=== PATIENT | female | born 1940 | race Caucasian/White ===

== ENCOUNTER 2021-07-27 08:29 | Outpatient (CLI) | payer MEDICARE, OTHER, SELFPAY ==
[2021-07-27 10:06] LABS: Alanine Aminotransferase 17 U/L (4-35); Albumin Level 4.5 g/dL (3.5-5.1); Alkaline Phosphatase 71 U/L (38-126); Anion Gap 7 mmol/L (8-16); Aspartate Amino Transferase 26 U/L (14-36); Bilirubin,Total 0.5 mg/dL (0.2-1.3); Blood Urea Nitrogen 15 mg/dL (7-17); Calcium 9.5 mg/dL (8.4-10.2); Carbon Dioxide 31 mmol/L (22-30); Chloride 105 mmol/L (98-107); Cholesterol 188 mg/dL (0-200); Estimated Glomerular Filt Rate 60; Glucose 97 mg/dL (65-110); HDL Direct 97 mg/dL; Sodium 143 mmol/L (137-145); Triglycerides 109 mg/dL (<150)
[2021-07-27 10:17] LABS: LDL Cholesterol Direct 61 mg/dL
[2021-07-27 10:50] LABS: Free T4 Free Thyroxine 0.93 ng/mL (0.78-2.19)
== END 2021-07-27 08:30 | disposition home or self-care (01) ==
LOC: ANHLAB 08:32
PROVIDERS: PCP Family Medicine; Visit Provider Family Medicine
DX: I10 Essential (primary) hypertension (principal); E03.9 Hypothyroidism, unspecified; E78.2 Mixed hyperlipidemia
CPT/HCPCS: 36415; 80053; 80061; 84439; 84443; 84480

== ENCOUNTER 2021-08-30 09:30 | Outpatient (CLI) | payer MEDICARE, OTHER, SELFPAY ==
--- NOTE | ~2021-08-30 | CT_ITS ---
EXAMINATION: CT brain & sinus wo con DATE: 08/30/2021 09:49 INDICATION: Dizziness and giddiness. TECHNIQUE: Computed tomography (CT) of the head was performed without intravenous contrast. The dose- length product was 756.67 mGy-cm. Automated exposure control and iterative reconstruction technique w ere employed. COMPARISON: None FINDINGS: There are scattered mild periventricular and subcortical white matter changes, most likely related to small vessel ischemic disease (microangiopathy). No acute intracranial hemorrhage, infarct ion, mass or mass effect. Basilar cisterns are patent. Paranasal sinuses and mastoids are pneumatized . No depressed skull fractures. Midline sagittal images are unremarkable. IMPRESSION: 1. No acute intracranial abnormality. 2: Chronic age-related findings. Reviewed, dictated and finalized at location A. RETE ANALYST
== END 2021-08-30 09:31 | disposition home or self-care (01) ==
LOC: ANHIMG 09:31
PROVIDERS: PCP Family Medicine; Visit Provider Family Medicine
DX: R42 Dizziness and giddiness (principal); R51.9 Headache, unspecified
CPT/HCPCS: 70450; 70486

== ENCOUNTER 2021-10-02 07:57 | Outpatient (CLI) | payer MEDICARE, OTHER, SELFPAY ==
--- NOTE | ~2021-10-02 | MM_ITS ---
EXAMINATION: MM screening ashley BI w jillian HISTORY: Screening mammogram TECHNIQUE: Craniocaudal and mediolateral oblique 3-D tomosynthesis images were obtained and synthetic 2-D images were generated. CAD analysis was submitted and interpreted. COMPARISON: No prior mammogram is available for comparison at this institution. BREAST PARENCHYMAL COMPOSITION: There are scattered areas of fibroglandular density. FINDINGS: There is no evidence of suspicious mass, calcification, or architectural distortion to sugg est malignancy in either breast. IMPRESSION: 1. No mammographic evidence of malignancy. 2. Recommend routine screening mammography in one year. BI-RADS Category 1: Negative Reviewed, dictated and finalized at location A. MARKER
--- NOTE | ~2021-10-02 | DEXA_ITS ---
Bone Density Report Name: GUERLINE ORTIZ Age: 80 Sex: Female Ethnicity: White Date of : 1940 Indication: postmenopausal; height loss; cancer; Referring Provider: CHRISTIE KUMAR Study: Bone densitometry was performed. Exam Date: October 02, 2021 Accession number: [id number] Bone Density: Region BMD T-score Z-score Classification AP Spine (L1, L2, L3) 0.857 -1.5 1.1 Osteopenia Femoral Neck (Left) 0.468 -3.4 -1.1 Osteoporosis Total Hip (Left) 0.588 -2.9 -0.9 Osteoporosis Total Hip Bilateral Avg 0.586 -2.9 -0.9 Osteoporosis Femoral Neck (Right) 0.503 -3.1 -0.8 Osteoporosis Total Hip (Right) 0.583 -2.9 -0.9 Osteoporosis World Health Organization criteria for BMD impression classify patients as: Normal (T-score at or above -1.0), Osteopenia (T-score between -1.0 and -2.5), or Osteoporosis (T-score at or below -2.5). 10-year Fracture Risk: FRAX not reported because: Some T-score for Spine Total or Hip Total or Femoral Neck at or below -2.5 Clinical Information Provided by Patient: Has used the following medications: Vitamin D Has the following medical conditions: Cancer Patient maximum height was 63 Menopause Age: 33 Drinks caffeinated beverages Onset of menses at age 14 Number of children 4 Impression: The patient has osteoporosis, based on the Left Femoral Neck T-score. Discussion: INCREASED RISK OF FRACTURE. BONE DENSITY IS UNDESIRABLY LOW AT ONE OR MORE SKELETAL SITES, CONSISTENT WITH POSTMENOPAUSAL OSTEOPOROSIS. This patient's lowest T-score meets the World Health Organization's (WHO) criteria for osteoporosis at one or more sites (T-score -2.5 or below). In untreated patients, the risk of osteoporotic fracture increases approximately two-fold for each 1.0 SD decrease in T-score. Low bone density is not the only risk factor for fracture; also consider factors such as patient's age, frailty or poor health, risk of falling, risk of injury, previous osteoporotic fracture, family history of osteoporosis, cigarette smoking, low body weight, etc. Not everyone with low bone mineral density has osteoporosis; osteomalacia and other metabolic bone disorders should also be considered. Patients who have osteoporosis should be evaluated for specific diseases and conditions (secondary causes) that may cause or contribute to bone loss. The [place] [employer] Endocrinologists (AACE) and National Osteoporosis Foundation (NOF) recommend pharmacologic intervention for all postmenopausal women whose T-score is in this range. The patient should follow a healthful lifestyle (good nutrition with adequate calcium and vitamin D, and appropriate weight-bearing exercise). Follow-Up: Consider a repeat BMD and Vertebral Fracture Assessment (VFA) exam in 2 years or sooner if medically necessary, to reassess this rinku
== END 2021-10-02 07:58 | disposition home or self-care (01) ==
PROVIDERS: PCP Family Medicine; Visit Provider Family Medicine
DX: Z12.31 Encounter for screening mammogram for malignant neoplasm of breast (principal); Z78.0 Asymptomatic menopausal state; M81.0 Age-related osteoporosis without current pathological fracture
CPT/HCPCS: 77063; 77067; 77080

== ENCOUNTER 2021-11-22 22:46 | Emergency (ER) | payer MEDICARE, OTHER, SELFPAY ==
[2021-11-22 22:53] VITALS: BP 173/85; PULSE 99; RESP 18; TEMP 36.2; O2SAT 100
--- NOTE | 2021-11-22 23:31 | ED.URI ---
HPI - URI/Sore Throat General Chief Complaint: Upper Respiratory Infection Stated Complaint: sore throat, white patches X 1 month Time Seen by Provider: 11/22/21 23:03 Source: patient Mode of arrival: ambulatory Limitations: no limitations History of Present Illness HPI Narrative: Patient is a 80-year-old female complaining of white spots in the back of her throat that started 2 days ago. Patient states that she is been having sore throat for the past month but only the past 2 days she has noticed white spots. Patient states that she is currently on steroids, has been on it for the past week, prescribed by her PCP but does not know what it was for. Denies any dysphagia, neck swelling, shortness of breath, fever or chills. Related Data Home Medications Medication Instructions Recorded Confirmed cholecalciferol (vitamin D3) 50 50 mcg PO DAILY 07/24/21 11/13/21 mcg (2,000 unit) capsule levothyroxine 75 mcg tablet 75 mcg PO DAILY 07/24/21 11/13/21 Allergies Allergy/AdvReac Type Severity Reaction Status Date / Time Penicillins Allergy Unknown Verified 11/22/21 22:49 Review of Systems Review of Systems: Per HPI All systems reviewed & are unremarkable except as noted in HPI and below PMFSH Past Medical History Medical History Atrial fibrillation with controlled ventricular response Benign essential HTN Cervical cancer Constipation Current use of intermodal dispatcher anticoagulation History of external beam radiation therapy Lower abdominal pain 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 Rectal stenosis Vaginal stenosis Surgical History Surgical History Colostomy status Hx of cataract extraction Social History Social History Social History: Widows Smoking status: Never smoker Second hand tobacco smoke exposure: No Alcohol intake: never Substance use: never Substance use type: does not use Gender identity (if verbalized by the patient): Female Sexual Orientation (if Verbalized by the Patient): Straight or Heterosexual Exam Const: General: cooperative, healthy appearing, comfortable, no acute distress, well developed, alert and awake; No confusion Orientation/consciousness: oriented to person, oriented to place, oriented to time, patient oriented x3 and No confusion Limitations: no limitations HENMT: Head: normal to inspection, normocephalic and atraumatic Ears: hearing grossly normal bilaterally, TM normal on the right and TM normal on the left General nose exam: Normal external nose present, Normal nares present and No nasal discharge present Face and sinus: normal facial exam Mouth: Yes Normal oral and palatal mucosa present, Yes lip normal, Yes tongue normal and Yes oropharynx normal Throat: uvula midline Other: Negative for neck swelling or edema. White patches oropharyngeal area, negative for edema or swelling, negative for lymphadenopathy Eyes: General: appearance normal, both eyes and all related structures Pupils: Equal, round and reactive pupils present EOM: EOMs intact bilaterally Neck: Neck: normal visual inspection, full ROM, no lymphadenopathy and no meningeal signs Chest: Chest palpation & inspection: normal inspection of the chest Resp: Effort & Inspection: normal respiratory effort, able to speak in complete sentences, no respiratory distress and not tachypneic Auscultation: clear to auscultation bilaterally, no crackles, no rales, no rhonchi and no wheezes Cardio: Rate: regular rate Rhythm: regular rhythm GI: Inspection: normal to inspection GI Palp: No abdominal tenderness, Yes Soft to palpation, No Tenderness to palpation present (GI), No Guarding due to palpation present (GI), No Rigid due to palpation and No Rebound tenderness present Auscultat
== END 2021-11-23 00:13 | disposition home or self-care (01) ==
PROVIDERS: Emergency Provider Emergency Medicine; PCP Family Medicine
DX: B37.0 Candidal stomatitis (principal); I48.91 Unspecified atrial fibrillation; I10 Essential (primary) hypertension; Z85.41 Personal history of malignant neoplasm of cervix uteri; Z92.3 Personal history of irradiation; Z79.01 Long term (current) use of anticoagulants; Z98.49 Cataract extraction status, unspecified eye; Z93.3 Colostomy status
CPT/HCPCS: 87081; 87880; 99283

== ENCOUNTER 2021-12-09 07:56 | Emergency (ER) | payer MEDICARE, OTHER, SELFPAY ==
--- NOTE | ~2021-12-09 | CT_ITS ---
EXAMINATION: CT abdomen pelvis w con DATE: 12/09/2021 09:29 INDICATION: Right lower abdominal pain. Dysuria. TECHNIQUE: Computed tomography (CT) of the abdomen and pelvis was performed with 100 cc Omnipaque 350 intravenous contrast. The dose-length product was 227.10 mGy-cm. Automated exposure control and iter ative reconstruction technique were employed. COMPARISON: None. FINDINGS: There is right middle lobe atelectasis. Borderline heart size. No significant pleural or pe ricardial effusion. There are calcified granulomas of the liver and spleen. There are small subcentim eter hypodensities of the liver, most likely benign cysts. Gallbladder is present. Status post partia l left colectomy with colostomy in the left lower abdomen. Nonobstructive bowel gas pattern. Bladder wall is mildly prominent with enhancement, suspicious for cystitis. There is atherosclerosis of the a joni without aneurysm. There is right renal artery stenosis. There is mild left hydronephrosis. No de finite obstructing stone identified. There is sclerosis bilaterally in the sacrum, possibly bone bri nds. Generalized osteopenia. There is osteoarthritis of the hips. There is moderate lumbar spondylosi s. IMPRESSION: 1. Mild thickening of the bladder wall with enhancement, suspicious for cystitis. Correlate clinicall y. 2: Mild left hydronephrosis. No definite obstructing stone or mass identified. Reviewed, dictated and finalized at location A. NE ELECTRICIAN HELPER IMPRESSION: 1. Mild thickening of the bladder wall with enhancement, suspicious for cystiti s. Correlate clinically. 2: Mild left hydronephrosis. No definite obstructing stone or mass identified.
[2021-12-09 07:58] VITALS: BP 161/80; PULSE 97; RESP 18; TEMP 36.6; O2SAT 99
[2021-12-09 08:24] LABS: Add Urine Microscopic? YES; Appearance Urine Clear (Clear); Bacteria Urine Trace /hpf; Bilirubin Urine Negative (Negative); Blood Urine 3+ (Negative); Color Urine Straw (Yellow); Glucose Urine UA Negative (Negative); Ketones Urine Negative (Negative); Leukocyte Esterase Ur 3+ LEU/UL (Negative); Mucus Urine Rare /lpf; Nitrate Urine Negative (Negative); Protein Urine Negative (Negative); RBC Urine 0-2 /hpf (0-2); Squamous Epithelial Cell Urine Rare /hpf (Few); Urobilinogen Urine Negative mg/dL (<2.0); WBC Urine >75 /hpf
[2021-12-09 08:25] LABS: Specific Grav Ur 1.001 (1.001-1.035)
[2021-12-09 08:38] LABS: Basophils Percent Auto 0.4 % (0.2-1.2); Eosinophils Absolute Auto 0.1 K/mm3 (0-0.3); Hematocrit 36.5 % (37.0-47.0); Hemoglobin 11.8 g/dL (12.0-15.0); Immature Granulocyte Absolute 0.05 K/mm3 (0.00-0.031); Immature Granulocyte Percent A 0.5 % (0-0.5); Lymphocytes Absolute Auto 1.23 K/mm3 (0.9-3.2); Lymphocytes Percent Auto 13.1 % (18.3-44.2); Mean Corpuscular HGB Conc 32.3 g/dl (32-36); Mean Corpuscular Hemoglobin 32.5 pg (26-34); Mean Corpuscular Volume 100.6 fl (80-100); Monocytes Absolute Auto 0.6 K/mm3 (0.1-0.6); Monocytes Percent Auto 6.7 % (2.6-8.5); Neutrophils Absolute Auto 7.3 K/mm3 (1.3-6.7); Neutrophils Percent Auto 78.3 % (45.5-73.1); Platelet Count Result 245 k/mm3 (150-375); Red Blood Count 3.63 M/mm3 (4.2-5.4); Red Cell Distribution Width 13.3 % (11.5-14.5); White Blood Count 9.4 K/mm3 (4.5-10.0)
[2021-12-09 08:51] LABS: Alanine Aminotransferase 26 U/L (4-35); Alkaline Phosphatase 105 U/L (38-126); Anion Gap 2 mmol/L (8-16); Aspartate Amino Transferase 28 U/L (14-36); Bilirubin,Total 0.4 mg/dL (0.2-1.3); Blood Urea Nitrogen 13 mg/dL (7-17); Calcium 9.6 mg/dL (8.4-10.2); Carbon Dioxide 30 mmol/L (22-30); Chloride 106 mmol/L (98-107); Estimated CRCL calculation 43 ml/min; Estimated Glomerular Filt Rate > 60; Glucose 94 mg/dL (65-110); Lipase 102 U/L (23-300); Potassium 3.7 mmol/L (3.4-5.0); Sodium 138 mmol/L (137-145)
--- NOTE | 2021-12-09 09:13 | ED.FEMALEGU ---
HPI - Female Genitourinary General Chief complaint: Urogenital-Female Stated complaint: UTI Time Seen by Provider: 12/09/21 07:59 Source: patient and RN notes reviewed Mode of arrival: ambulatory Limitations: no limitations History of Present Illness HPI Narrative: This is a 80 year old female who presents for lower abdominal pain and possible UTI. Patient developed lower abdominal pain this morning. She also reports associated increased urgency, frequency and dysuria. She also states she is urinating a small amount at a time. She denies hematuria, nausea, vomiting, back pain or fever. She denies history of frequent UTIs. Related Data Home Medications Medication Instructions Recorded Confirmed cholecalciferol (vitamin D3) 50 50 mcg PO DAILY 07/24/21 12/03/21 mcg (2,000 unit) capsule levothyroxine 75 mcg tablet 75 mcg PO DAILY 07/24/21 12/03/21 Allergies Allergy/AdvReac Type Severity Reaction Status Date / Time Penicillins Allergy Unknown Verified 11/27/21 13:11 Review of Systems Review of Systems: All systems reviewed & are unremarkable except as noted in HPI and below PMFSH Past Medical History Medical History Atrial fibrillation with controlled ventricular response Benign essential HTN Cervical cancer Constipation Current use of custodial anticoagulation History of external beam radiation therapy Lower abdominal pain 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 Gender identity (if verbalized by the patient): Female Sexual Orientation (if Verbalized by the Patient): Straight or Heterosexual Exam Const: General: no acute distress and alert Orientation/consciousness: patient oriented x3 Eyes: EOM: EOMs intact bilaterally Resp: Effort & Inspection: normal respiratory effort and no retractions Auscultation: clear to auscultation bilaterally Cardio: Rate: regular rate Rhythm: regular rhythm Heart sounds: no murmurs GI: GI Palp: Yes Soft to palpation, Yes Tenderness to palpation present (GI) (RLQ), No Guarding due to palpation present (GI) and No Rigid due to palpation Auscultation: normal bowel sounds Other: LLQ colostomy : General: Yes no CVA tenderness Skin: General skin exam: normal color Rashes: no rashes Neuro: General: patient oriented x3, moves all extremities and CN's II-XI intact bilaterally Psych: Mental Status: mental status grossly normal Affect: normal affect Course Reevaluation(s) Reevaluation #1: Patient had CT performed due to having right lower abdominal tenderness with left shift. Ct shows cystitis. I discussed discharge plan with patient and she will be given antibiotics. She reports taking amoxicillin recently without any issues. She does not remember reaction to penicillin. Date: 12/09/21 Time: 10:07 Vital Signs Vital signs: Vital Signs Temperature 97.8 F 12/09/21 07:58 Pulse Rate 97 12/09/21 07:58 Respiratory Rate 18 12/09/21 07:58 Blood Pressure 161/80 H 12/09/21 07:58 Pulse Oximetry 99 12/09/21 07:58 Temperature 97.8 F 12/09/21 07:58 Pulse Rate 87 12/09/21 10:27 Respiratory Rate 16 12/09/21 10:27 Blood Pressure 156/75 H 12/09/21 10:27 Pulse Oximetry 97 12/09/21 10:27 MDM - Female Genitourinary Lab Data Attestation: I reviewed the patient's lab results. Result diagrams: 12/09/21 08:
[2021-12-09 10:27] VITALS: BP 156/75; PULSE 87; RESP 16; O2SAT 97
== END 2021-12-09 10:40 | disposition home or self-care (01) ==
PROVIDERS: Emergency Provider General Practice; PCP Family Medicine
DX: I48.91 Unspecified atrial fibrillation (principal); N13.30 Unspecified hydronephrosis; I10 Essential (primary) hypertension; I69.911 Memory deficit following unspecified cerebrovascular disease; Z85.41 Personal history of malignant neoplasm of cervix uteri; Z79.01 Long term (current) use of anticoagulants; Z98.49 Cataract extraction status, unspecified eye; Z93.3 Colostomy status; N30.90 Cystitis, unspecified without hematuria
CPT/HCPCS: 36415; 74177; 80053; 81001; 83690; 85025; 87077; 87086; 87186; 96365; 99284; J0696; Q9967

== ENCOUNTER 2021-12-26 09:24 | Outpatient (CLI) | payer MEDICARE, OTHER, SELFPAY ==
[2021-12-26 09:49] LABS: Basophils Percent Auto 0.2 % (0.2-1.2); Eosinophils Percent Auto 0.4 % (0-4.4); Hemoglobin 12.4 g/dL (12.0-15.0); Lymphocytes Absolute Auto 1.43 K/mm3 (0.9-3.2); Lymphocytes Percent Auto 14.1 % (18.3-44.2); Mean Corpuscular HGB Conc 32.6 g/dl (32-36); Mean Corpuscular Hemoglobin 32.6 pg (26-34); Mean Platelet Volume 9.2 fl (7.4-10.4); Monocytes Percent Auto 9.9 % (2.6-8.5); Neutrophils Absolute Auto 7.6 K/mm3 (1.3-6.7); Neutrophils Percent Auto 74.4 % (45.5-73.1); Platelet Count Result 281 k/mm3 (150-375); Red Cell Distribution Width 13.7 % (11.5-14.5); White Blood Count 10.1 K/mm3 (4.5-10.0)
[2021-12-26 10:23] LABS: Alanine Aminotransferase 20 U/L (4-35); Albumin Level 3.7 g/dL (3.5-5.1); Alkaline Phosphatase 82 U/L (38-126); Anion Gap 2 mmol/L (8-16); Aspartate Amino Transferase 24 U/L (14-36); Bilirubin,Total 0.5 mg/dL (0.2-1.3); Blood Urea Nitrogen 17 mg/dL (7-17); Calcium 9.1 mg/dL (8.4-10.2); Carbon Dioxide 31 mmol/L (22-30); Chloride 105 mmol/L (98-107); Estimated Glomerular Filt Rate > 60; Glucose 112 mg/dL (65-110); Sodium 138 mmol/L (137-145)
== END 2021-12-26 09:25 | disposition home or self-care (01) ==
LOC: ANHLAB 09:30
PROVIDERS: PCP Family Medicine; Visit Provider Nurse Practitioner Gerontology
DX: E87.6 Hypokalemia (principal); N89.5 Stricture and atresia of vagina; I10 Essential (primary) hypertension
CPT/HCPCS: 36415; 80053; 85025

== ENCOUNTER 2022-01-28 19:15 | Emergency (ER) | payer MEDICARE, OTHER, SELFPAY ==
[2022-01-28 19:22] VITALS: BP 153/75; PULSE 82; RESP 18; TEMP 36.2; O2SAT 100
--- NOTE | 2022-01-28 21:23 | ED.GENADULT ---
HPI - General Adult General Chief complaint: Unspecified Stated complaint: sore throat Time Seen by Provider: 01/28/22 21:17 Source: patient Mode of arrival: ambulatory Limitations: no limitations History of Present Illness HPI narrative: Patient is 81 years old white female had a diagnosis of oral candidiasis November 21, 2021 by her family physician. Patient been on different courses of nystatin oral suspension, fluconazole tablets intermittently since the beginning of the diagnosis and to now. Currently patient on nystatin oral suspension without any improvement, scheduled to see an ENT after tomorrow. Patient came to the ED today because he needs some pain medication but is down her sore throat and oral pain. Patient is not immunocompromised, denied any history of HIV or AIDS, denied history of any autoimmune disease. is not on immune suppressant medication Related Data Home Medications Medication Instructions Recorded Confirmed cholecalciferol (vitamin D3) 50 50 mcg PO DAILY 07/24/21 01/25/22 mcg (2,000 unit) capsule Allergies Allergy/AdvReac Type Severity Reaction Status Date / Time cefuroxime Allergy Severe Rash Verified 01/28/22 21:22 Penicillins Allergy Unknown Verified 01/28/22 21:22 Review of Systems Review of Systems: CONSTITUTIONAL: Denies fever, chills, or sweats. EYES: Denies visual changes, redness, or discharge. ENT: Denies rhinorrhea, congestion, sore throat, or otalgia. CARDIOVASCULAR: Denies chest pain, palpitations, or edema. RESPIRATORY: Denies cough or dyspnea. GASTROINTESTINAL: Denies abdominal pain, nausea, vomiting, or diarrhea. GENITOURINARY: Denies dysuria or hematuria. SKIN: Denies rash or itching. MUSCULOSKELETAL: Denies back pain, joint pain, or myalgia. NEUROLOGIC: Denies headache, numbness, or weakness. PSYCHIATRIC: Denies anxiety or depression. 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 Gender identity (if verbalized by the patient): Female Sexual Orientation (if Verbalized by the Patient): Straight or Heterosexual Exam Narrative: General appearance: Well-developed, well-nourished Skin: Normal color Head: Normocephalic, nontraumatic Eyes: Clear conjunctiva ENT: Oral mucosa, tongue, hard and soft palates showing white pseudomembrane is plaques, scraping causes erythematous, inflamed and the bleeding base. Chest and respiratory: Airway patent, no respiratory distress, no accessory muscle use Heart: Regular rate/rhythm Vascular: Normal peripheral pulses, normal capillary refill. Musculoskeletal: Normal range of motion, nontender back Neurologic: Alert and oriented ?3, DRAW FURNACE TENDER is normal as tested, no gross motor deficit Course Course Emergency Course: Oral candidiasis is my concern. Patient denies any steroid use, autoimmune dise
--- NOTE | 2022-01-28 22:12 | PC.NURSE ---
patient states that she has had a sore mouth since nov. she has seen here PCP and has been given the same medications x4 with no relief. has an appt with ENT this week
[2022-01-28] MEDS: LIDOCAINE HCL 2% VISC SOLN 15 ML UDC PO (22:37)
== END 2022-01-28 23:17 | disposition home or self-care (01) ==
LOC: ANHED 22:55
PROVIDERS: Emergency Provider Emergency Medicine; PCP Family Medicine
DX: B37.0 Candidal stomatitis (principal); I48.91 Unspecified atrial fibrillation; I10 Essential (primary) hypertension; I69.911 Memory deficit following unspecified cerebrovascular disease; Z85.41 Personal history of malignant neoplasm of cervix uteri; Z79.01 Long term (current) use of anticoagulants
CPT/HCPCS: 99283

== ENCOUNTER 2022-03-12 20:51 | Emergency (ER) | payer MEDICARE, OTHER, SELFPAY ==
[2022-03-12 20:51] VITALS: BP 145/74; PULSE 78; RESP 18; TEMP 36.8; O2SAT 97
--- NOTE | 2022-03-12 21:08 | ED.GENADULT ---
HPI - General Adult General Chief complaint: Unspecified Stated complaint: throat pain Time Seen by Provider: 03/12/22 21:06 History of Present Illness HPI narrative: Patient is 81 years old white female been having throat issue since November 2021 she noticed white spots and was treated for possible thrush, she was given voriconazole and viscous lidocaine prescribed by me on January 28, 2022 but did not help. Finally she went to see ENT and because of persistent stomatitis she was referred to see Dr. Salcedo.. Was seen by Dr. Salcedo on February 28, 2022 and was discharged with a diagnosis of stomatitis of unknown etiology, scheduled for EGD as outpatient to get biopsy to check for fungal, CMV and etc.. Patient is back to the emergency room today again for the same complaint looking for help. Although I was only physician who started her and antifungal medication and viscous lidocaine on January 28. Did not get any medication by ENT or by the bilingual hr generalist. She denies any fever, chills, nausea, vomiting, new oral complaints. She does not know the phone number of Dr. Salcedo and would like to have it before going back home Related Data Home Medications Medication Instructions Recorded Confirmed cholecalciferol (vitamin D3) 50 50 mcg PO DAILY 07/24/21 02/28/22 mcg (2,000 unit) capsule Allergies Allergy/AdvReac Type Severity Reaction Status Date / Time cefuroxime Allergy Severe Rash Verified 03/12/22 21:09 Penicillins Allergy Unknown Verified 03/12/22 21:09 Review of Systems Review of Systems: All systems reviewed & are unremarkable except as noted in HPI and below PMFSH Past Medical History Medical History Atrial fibrillation with controlled ventricular response Benign essential HTN Cervical cancer Constipation Current use of jail anticoagulation History of external beam radiation therapy Lower abdominal pain 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 Gender identity (if verbalized by the patient): Female Sexual Orientation (if Verbalized by the Patient): Straight or Heterosexual Exam Narrative: General appearance: Well-developed, well-nourished Skin: Normal color Head: Normocephalic, nontraumatic Eyes: Clear conjunctiva ENT: Oropharynx scattered bumps and erythematous changes of the oral cavity with white patches on the tongue Neck: Supple, nontender Chest and respiratory: Airway patent, no respiratory distress, no accessory muscle use Heart: Regular rate/rhythm Abdomen: Soft, nontender, no organomegaly, quiet bowel sounds Vascular: Normal peripheral pulses, normal capillary refill. Musculoskeletal: Normal range of motion, nontender back Neurologic: Alert and oriented ?3, ASSISTANT MERCHANDISE MANAGER is normal as tested, no gross motor deficit Course Course Emergency Course: Patient presents with chronic complaint about soreness of the oral cavity, today is not different than last week. Patient is frustrated because her appointment with the bilingual hr generalist next month and would like to do it as soon as but. She does not know the phone number of Dr. Salcedo. Vital
== END 2022-03-12 22:44 | disposition home or self-care (01) ==
PROVIDERS: Emergency Provider Emergency Medicine; PCP Family Medicine
DX: K12.1 Other forms of stomatitis (principal); I48.91 Unspecified atrial fibrillation; I10 Essential (primary) hypertension; I69.911 Memory deficit following unspecified cerebrovascular disease; Z85.41 Personal history of malignant neoplasm of cervix uteri; Z98.49 Cataract extraction status, unspecified eye
CPT/HCPCS: 99283

== ENCOUNTER 2022-03-24 08:01 | Emergency (ER) | payer MEDICARE, OTHER, SELFPAY ==
--- NOTE | ~2022-03-24 | CT_ITS ---
EXAMINATION: CT abdomen pelvis wo con DATE: 03/24/2022 09:27 INDICATION: Constipation, decreased ostomy output TECHNIQUE: Computed tomography (CT) of the abdomen and pelvis was performed without intravenous contr ast. The dose-length product (DLP) was 182.32 mGy-cm. Automated exposure control and iterative recons truction technique were employed. COMPARISON: 12/09/2021 FINDINGS: Minimal dependent atelectasis is present in the lung bases. The heart size is normal. Minim al airspace opacities of the right middle lobe have decreased with infection/inflammation. Punctate c alcifications in the liver and spleen likely represent healed granulomatous disease. There is a 6 mm cyst in the liver. The pancreas, gallbladder, and adrenal glands are normal. Peripelvic cysts are not ed in the otherwise normal kidneys. There is calcified atherosclerosis of the aorta and many of the o ther arteries. No pathologically enlarged abdominal or pelvic lymph nodes are identified. There is a diverting colostomy of the left lower quadrant. There is a large volume of stool in the pelvis which appears to be in the distended cecum. There is also a moderate volume of stool in the ascending and t ransverse colon. There is a small volume of adjacent pelvic ascites. There is severe lumbar spondylos is. IMPRESSION: 1. Large volume of stool in the distended cecum. Reviewed, dictated and finalized at location A.
[2022-03-24 08:14] VITALS: BP 165/80; PULSE 106; RESP 14; TEMP 36.5; O2SAT 100
[2022-03-24 09:09] LABS: Basophils Absolute Auto 0.1 K/mm3 (0.0-0.1); Eosinophils Absolute Auto 0.1 K/mm3 (0-0.3); Hematocrit 33.6 % (37.0-47.0); Hemoglobin 10.6 g/dL (12.0-15.0); Immature Granulocyte Absolute 0.03 K/mm3 (0.00-0.031); Immature Granulocyte Percent A 0.5 % (0-0.5); Lymphocytes Absolute Auto 1.52 K/mm3 (0.9-3.2); Lymphocytes Percent Auto 24.7 % (18.3-44.2); Mean Corpuscular HGB Conc 31.5 g/dl (32-36); Mean Corpuscular Hemoglobin 31.7 pg (26-34); Mean Corpuscular Volume 100.6 fl (80-100); Mean Platelet Volume 8.9 fl (7.4-10.4); Monocytes Absolute Auto 0.8 K/mm3 (0.1-0.6); Monocytes Percent Auto 12.4 % (2.6-8.5); Neutrophils Absolute Auto 3.7 K/mm3 (1.3-6.7); Neutrophils Percent Auto 59.4 % (45.5-73.1); Platelet Count Result 328 k/mm3 (150-375); Red Blood Count 3.34 M/mm3 (4.2-5.4); Red Cell Distribution Width 13.2 % (11.5-14.5); White Blood Count 6.2 K/mm3 (4.5-10.0)
--- NOTE | 2022-03-24 09:09 | ED.GENADULT ---
HPI - General Adult General Chief complaint: Unspecified Stated complaint: abd pain Time Seen by Provider: 03/24/22 08:07 History of Present Illness HPI narrative: 81-year-old female presenting to the emergency department for evaluation of decreased ostomy output and for passing a stool rectally. Patient states approximately 10 years ago she had the ostomy placed due to complications from her cervical cancer and subsequent radiation therapy. Patient states she has not rectally stooled previously. Patient did have an episode of dehydration last week and has since had decreased ostomy output. Patient was trying to bear down to pass stool through her ostomy but did pass a hard rectal stool. Patient states she does feel constipated but denies any other pain or complaint. Patient has had no bleeding from her ostomy or from her rectum. Related Data Home Medications Medication Instructions Recorded Confirmed cholecalciferol (vitamin D3) 50 50 mcg PO DAILY 07/24/21 03/21/22 mcg (2,000 unit) capsule Allergies Allergy/AdvReac Type Severity Reaction Status Date / Time cefuroxime Allergy Severe Rash Verified 03/24/22 08:19 Penicillins Allergy Unknown Verified 03/24/22 08:19 Review of Systems Review of Systems: CONSTITUTIONAL: Denies fever, chills, or sweats. EYES: Denies visual changes, redness, or discharge. ENT: Denies rhinorrhea, congestion, sore throat, or otalgia. CARDIOVASCULAR: Denies chest pain, palpitations, or edema. RESPIRATORY: Denies cough or dyspnea. GASTROINTESTINAL: Denies abdominal pain, nausea, vomiting, or diarrhea. See HPI GENITOURINARY: Denies dysuria or hematuria. SKIN: Denies rash or itching. MUSCULOSKELETAL: Denies back pain, joint pain, or myalgia. NEUROLOGIC: Denies headache, numbness, or weakness. 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 Rectal stenosis Vaginal stenosis Surgical History Surgical History Colostomy status Hx of cataract extraction Social History Social History Social History: Widows Smoking packs per day: 1 Smoking cigarettes per day: 20.0 Years smoked: 35 Smoking pack-years: 35.00 Smoking status: Former smoker Tobacco type: cigarettes Second hand tobacco smoke exposure: No Alcohol intake: never Substance use: never Substance use type: does not use Additional living arrangements comments: lives with daughter- Gender identity (if verbalized by the patient): Female Sexual Orientation (if Verbalized by the Patient): Straight or Heterosexual Spiritual care concerns: No Exam Narrative: APPEARANCE: Well appearing, no pain, no distress, well-nourished. HEAD: normocephalic, atraumatic. EYES: PERRLA/EOMI, conjunctivae clear. NOSE: Normal no drainage NECK: Supple. No adenopathy, no masses. RESPIRATORY: Airway patent, respirations nonlabored. Clear to auscultation bilaterally, no rales, rhonchi, wheezing. CARDIOVASCULAR: Regular rate and rhythm without murmurs rubs or gallops. ABDOMINAL: Soft, nontender, nondistended, normal bowel sounds. Abdomen soft is nontender. Patient did have some mild ostomy prolapse that was reduced. MUSCULOSKELETAL: Moves all extremities. Strength/ROM intact, No edema, No calf tenderness. NEURO: Alert. Cranial nerves II through XII intact. Grossly intact SKIN: Warm, dry. Normal Color Course Course Emergency Course: Patient's primary concern was the material that she passed rectally. Patient does have longstanding history of constipation and does take Yfn
[2022-03-24 09:18] LABS: Lactic Acid Reflex 0.8 mmol/L (0.7-2.0)
[2022-03-24 09:19] LABS: Alanine Aminotransferase 10 U/L (6-35); Albumin Level 3.6 g/dL (3.5-5.1); Alkaline Phosphatase 84 U/L (38-126); Anion Gap 4 mmol/L (8-16); Aspartate Amino Transferase 19 U/L (14-36); Bilirubin,Total 0.2 mg/dL (0.2-1.3); Blood Urea Nitrogen 11 mg/dL (7-17); Calcium 9.2 mg/dL (8.4-10.2); Carbon Dioxide 31 mmol/L (22-30); Chloride 104 mmol/L (98-107); Estimated CRCL calculation 37 ml/min; Estimated Glomerular Filt Rate > 60; Glucose 93 mg/dL (65-110); Potassium 3.5 mmol/L (3.4-5.0); Sodium 139 mmol/L (137-145)
[2022-03-24 09:30] VITALS: BP 120/87; PULSE 74; RESP 14; RESP 19; O2SAT 100; O2SAT 97
[2022-03-24 11:10] VITALS: BP 129/81; PULSE 87; RESP 19; O2SAT 99
== END 2022-03-24 11:10 | disposition home or self-care (01) ==
PROVIDERS: Emergency Provider Emergency Medicine; PCP Family Medicine
DX: K59.00 Constipation, unspecified (principal); I48.91 Unspecified atrial fibrillation; I10 Essential (primary) hypertension; Z79.01 Long term (current) use of anticoagulants; Z87.891 Personal history of nicotine dependence; Z98.49 Cataract extraction status, unspecified eye; Z85.41 Personal history of malignant neoplasm of cervix uteri; Z92.3 Personal history of irradiation; Z93.3 Colostomy status
CPT/HCPCS: 36415; 74176; 80053; 83605; 85025; 99284

== ENCOUNTER 2022-03-27 00:36 | Day surgery (SDC) | payer MEDICARE, OTHER, SELFPAY ==
[2022-03-21 15:15] VITALS: BMI 20.4
[2022-03-27 07:54] VITALS: BP 123/80; PULSE 92; RESP 18; TEMP 36.4; O2SAT 98; BMI 20.9
[2022-03-27] MEDS: LACTATED RINGERS 1,000 ML 150 ML IV CONT (08:18)
--- NOTE | 2022-03-27 08:33 | WPDANESEPPF ---
Anes - Initial Pre Proc Eval Procedure: Operation Date: 03/27/22 09:00 Proposed Procedures p Esophagogastroduodenoscopy - Good Martínez MD Date/Time: 03/27/22 08:33 Surgeon: Good Martínez MD Pre Op Diagnosis: stomatitis, sore throat, GERD Patient Data Age: 81 Gender: F Height: 1.55 m Weight: 50.4 kg Last Vital Signs Temp 97.5 F L 03/27/22 07:54 Pulse 92 03/27/22 07:54 Resp 18 03/27/22 07:54 BP 123/80 03/27/22 07:54 Pulse Ox 98 03/27/22 07:54 O2 Del Method Room Air 03/27/22 07:54 Allergies Allergy/AdvReac Type Severity Reaction Status Date / Time cefuroxime Allergy Severe Rash Verified 03/27/22 08:03 Penicillins Allergy Unknown Verified 03/27/22 08:03 Home Medications Medication Instructions Recorded Confirmed Type cholecalciferol (vitamin D3) 50 50 mcg PO DAILY 07/24/21 03/27/22 History mcg (2,000 unit) capsule atorvastatin 10 mg tablet See Rx Instructions .Route 11/02/21 03/27/22 Rx .COMPLEX #90 tabs omeprazole 40 mg capsule,delayed 40 mg PO DAILY #90 caps 11/13/21 03/27/22 Rx release levothyroxine 75 mcg tablet See Rx Instructions .Route 12/17/21 03/27/22 Rx .COMPLEX #90 tabs apixaban 5 mg tablet (Eliquis) See Rx Instructions .Route 12/31/21 03/27/22 Rx .COMPLEX #60 tabs diltiazem HCl 240 mg capsule,24 See Rx Instructions .Route 01/24/22 03/27/22 Rx hr,extended release .COMPLEX #90 caps Patient hx anesthesia problems: none Family hx anesthesia problems: none Results Review: All pre-operative results and documents have been reviewed as part of the pre-operative evaluation. 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 Rectal stenosis Vaginal stenosis Surgical History Surgical History Colostomy status Hx of cataract extraction Social History Social History Social History: Widows Smoking packs per day: 1 Smoking cigarettes per day: 20.0 Years smoked: 35 Smoking pack-years: 35.00 Smoking status: Former smoker Tobacco type: cigarettes Second hand tobacco smoke exposure: No Alcohol intake: never Substance use: never Substance use type: does not use Living arrangements: with family Additional living arrangements comments: lives with daughter- Gender identity (if verbalized by the patient): Female Sexual Orientation (if Verbalized by the Patient): Straight or Heterosexual Spiritual care concerns: No Anes - Eval Final PreProcedure Day of Procedure 03/27/22 08:33 Patient weight: normal Heart: irregular rhythm Lungs: clear to auscultation Airway: Mallampati scale class II Neurological: alert and oriented Last oral intake: >/= 8 hours ASA classification: III Emergent: no Anesthetic plan: proceed Anesthesia type and monitoring: general GIVS and standard monitoring Results Review: All pre-operative results and documents have been reviewed as part of the pre-operative evaluation. Informed Consent: The patient's anesthetic plan and its attendant risks and benefits were discussed with the patient/family/POA. Questions were solicited and answers provided to the satisfaction of the patient/family/POA.
--- NOTE | 2022-03-27 08:41 | WPDHPUPDATE1 ---
History and Physical Update Update Date/Time: 03/27/22 08:41 History and Physical has been reviewed, including an updated exam of the patient. There are NO changes in the patient's condition. Risks, benefits, and alternatives have been discussed and questions answered. Patient agrees to proceed with procedure.
[2022-03-27 09:05] VITALS: BP 98/44; PULSE 72; RESP 24; O2SAT 97
[2022-03-27 09:15] VITALS: BP 104/48; PULSE 75; RESP 22; O2SAT 99
[2022-03-27 09:25] VITALS: BP 110/68; PULSE 75; RESP 24; O2SAT 99
== END 2022-03-27 09:31 | disposition home or self-care (01) ==
PROVIDERS: PCP Family Medicine; Visit Provider Internal Medicine Gastroenterology
PROC: 0DJ08ZZ Inspection of Upper Intestinal Tract, Via Natural or Artificial Opening Endoscopic (ICD-10-PCS; CPT 43235; principal; 2022-03-27 09:00)
DX: R49.0 Dysphonia (principal); K21.00 Gastro-esophageal reflux disease with esophagitis, without bleeding; K29.50 Unspecified chronic gastritis without bleeding; K12.1 Other forms of stomatitis; I48.91 Unspecified atrial fibrillation; I10 Essential (primary) hypertension; K59.00 Constipation, unspecified; Z85.41 Personal history of malignant neoplasm of cervix uteri; Z90.49 Acquired absence of other specified parts of digestive tract; Z93.3 Colostomy status; Z92.3 Personal history of irradiation; I69.311 Memory deficit following cerebral infarction; Z79.01 Long term (current) use of anticoagulants; Z87.891 Personal history of nicotine dependence
CPT/HCPCS: 43239; 88305; J2704; J7120